=== PATIENT | male | born 1990 | race Caucasian/White ===

== ENCOUNTER 2020-05-15 00:46 | Emergency (ER) | payer SELFPAY ==
[2020-05-15] MEDS ORDERED: NALOXONE HCL INJ 2 MG/2 ML DISP.SYRIN IM ONE (01:01)
[2020-05-15] MEDS ORDERED: NALOXONE HCL INJ 2 MG/2 ML DISP.SYRIN IV ONE (01:02)
[2020-05-15] MEDS ORDERED: ONDANSETRON HCL INJ/PF 4 MG/2 ML SDV IV ONE (01:43)
--- NOTE | 2020-05-15 03:04 | ER Document Report ---
ED General - General Chief Complaint: Possible Overdose Stated Complaint: POSSIBLE OVERDOSE Notes: 29-year-old male presents with heroin overdose. Patient dropped off by unknown person, likely a friend, to hospital and was unresponsive. Patient was rapidly brought in to trauma bay and Narcan was given with good response. History limited by patient acuity TRAVEL OUTSIDE OF THE [place] IN LAST 30 DAYS: No - Related Data Allergies/Adverse Reactions: No Known Allergies Allergy (Unverified 12/06/14 16:05) Past Medical History - General Information source: [facility] Records - Social History Smoking Status: Never Smoker Drug Abuse: Heroin Family History: Reviewed & Not Pertinent Review of Systems - Review of Systems -: Yes ROS unobtainable due to patient's medical condition Physical Exam - Vital signs Vitals: Temp Pulse Ox 97.8 F 98 05/15/20 00:47 05/15/20 00:47 - Notes Notes: PHYSICAL EXAMINATION: GENERAL: Unresponsive young adult man being bagged with BVM HEAD: Atraumatic, normocephalic. EYES: Pinpoint pupils bilaterally, conjunctiva are normal. ENT: nares patent, moist mucous membranes. NECK: Normal range of motion, supple without lymphadenopathy LUNGS: Bradypnea. Poor excursion. HEART: Regular rate and rhythm without murmurs ABDOMEN: Soft, nontender, no guarding, no masses, no CVAT EXTREMITIES: Normal range of motion, no pitting or edema. No cyanosis. NEUROLOGICAL: Unresponsive to painful stimuli SKIN: Warm, Dry, normal turgor, no rashes or lesions noted. Course - Re-evaluation Re-evalutation: 05/15/20 03:33 Patient arrived with heroin overdose. Patient was bagged while Narcan was being given and did not significantly desaturate. initially 2 mg IM were given which did increase patient's respiratory rate but not his respiratory excursion and effort. Then additional 2 mg of IV Narcan were given which caused patient's respiratory rate to normalize with good excursion and patient woke up. Patient was observed in ED for an additional 2 hours and did not require any additional Narcan. Remained awake alert and clinically sober after initial 2 doses of Narcan. Patient denies any symptoms, had some vomiting after Narcan which I gave Zofran for. patient given Narcan prescription and I advised patient to give it to a trusted friend that he is going to continue using, anyway who is still conscious can give if he has another overdose. Advised patient to stop using and gave patient information for primary doctor and for [facility]. Gave patient extensive return to ED precautions which he demonstrated understanding of. - Vital Signs Vital signs: Temp Pulse Resp BP Pulse Ox 97.8 F 17 112/73 100 05/15/20 00:47 05/15/20 03:01 05/15/20 03:01 05/15/20 03:01 - EKG Interpretation by Me Additional EKG results interpreted by me: 05/15/20 03:36 Heart rate 89, no significant ST elevations or depressions, wandering baseline, QTC 487 Discharge - Discharge Clinical Impression: Heroin overdose Qualifiers: Encounter type: initial encounter Injury intent: accidental or unintentional Qualified Code(s): T40.1X1A - Poisoning by heroin, accidental (unintentional), initial encounter Disposition: HOME, SELF-CARE Additional Instructions: [facility] Your treated for heroin overdose. You would have if he had not been given Narcan to reverse overdose. He can carry Narcan with you were given to a trusted friend when you are going to be using. If you are ready to stop using heroin you can call [facility] crisis center. Follow-up with your primary doctor within 1 week. Prescriptions: Naloxone HCl [Narcan] 4 mg NS ONCE PRN #4 spray PRN Reason: For Overdose Symptoms
[2020-05-15 03:17] VITALS: BP 112/73
--- NOTE | 2020-05-15 07:38 | EKG REPORT ---
SEVERITY:- BORDERLINE ECG - SINUS RHYTHM BORDERLINE PROLONGED QT INTERVAL : Confirmed by: Rei Terrell MD 15-May-2020 07:37:55
== END 2020-05-15 03:28 | disposition home or self-care (01) ==
LOC: ER 00:46
DX: T40.1X1A Poisoning by heroin, accidental (unintentional), initial encounter (principal)
CPT/HCPCS: 93005; 99284; 96372; 96375; 93010; J2405; J2310; 82962